=== PATIENT | female | born 2000 | race African-American/Black ===

== ENCOUNTER 2022-03-12 03:40 | Emergency (ER) | payer SELFPAY ==
[~2022-03-12] VITALS: Ht 160 cm; Wt 77.4 kg
[2022-03-12] MEDS ORDERED: LIDOCAINE HCL 1% 20ML VIAL (Pyxis) INJ INFIL ONE (05:45)
[2022-03-12] MEDS ORDERED: CEFTRIAXONE SODIUM 500 MG/VIAL IM ONE (05:45)
[2022-03-12 05:51] LABS: CLARITY URINE CLEAR (CLEAR); COLOR URINE YELLOW (YELLOW); KETONES URINE TRACE (NEGATIVE); LEUKOCYTE ESTERASE URINE TRACE (NEGATIVE); NITRITE URINE NEGATIVE (NEGATIVE); OCCULT BLOOD URINE NEGATIVE (NEGATIVE); PROTEIN URINE NEGATIVE (NEGATIVE); SPECIFIC GRAVITY URINE 1.025 (1.005-1.030)
[2022-03-12] MEDS ORDERED: DOXY-326 MT (06:45)
[2022-03-12 06:49] LABS: HCG SCREEN NEGATIVE
[2022-03-12 06:58] VITALS: BP 118/78
[2022-03-13 08:10] LABS: HIV SCREEN 4G Non Reactive (Non Reactive)
[2022-03-14 04:09] LABS: NEISSERIA GONORRHOEAE NAA Negative (Negative)
== END 2022-03-12 06:59 | disposition home or self-care (01) ==
LOC: ER 03:40
DX: Z20.2 Contact with and (suspected) exposure to infections with a predominantly sexual mode of transmission (principal); Z98.890 Other specified postprocedural states
CPT/HCPCS: 81003; 81025; 84703; 86592; 87389; 87491; 87591; 96372; 99283; J0696; J3490